=== PATIENT | female | born 1985 | race Hispanic/Latino ===

== ENCOUNTER 2017-12-11 10:27 | Emergency (ER) | payer OTHER ==
[2017-12-11] MEDS ORDERED: Iohexol 240 (50 ml) PO ONE (11:05)
[2017-12-11] MEDS ORDERED: Sodium Chloride 0.9% 1,000 ML IV STA (11:05)
[2017-12-11 11:31] LABS: BASO % 0.3 % (0.0-2.0); EOS % 0.1 % (0.0-4.0); HEMOGLOBIN 13.7 g/dL (12.0-16.0); LYMPH # 1.2 K/uL (1.0-4.3); LYMPH % 8.4 % (20.0-40.0); MEAN CORPUSCULAR HEMOGLOBIN 29.7 pg (27.0-31.0); MEAN CORPUSCULAR HGB CONC 33.7 g/dL (33.0-37.0); MEAN PLATELET VOLUME 8.5 fl (7.2-11.7); MONO # 0.8 K/uL (0.0-0.8); MONO % 5.6 % (0.0-10.0); NEUT # 12.2 K/uL (1.8-7.0); NEUT % 85.6 % (50.0-75.0); PLATELET COUNT 228 K/uL (130-400); RBC 4.63 Mil/uL (3.80-5.20); RED CELL DISTRIBUTION WIDTH 13.3 % (11.5-14.5); WHITE BLOOD COUNT 14.2 K/uL (4.8-10.8)
[2017-12-11 11:41] LABS: ALB/GLOB RATIO 1.4 (1.0-2.1); ALBUMIN 4.4 g/dL (3.5-5.0); ALT/SGPT 29 U/L (9-52); AST/SGOT 20 U/L (14-36); BLOOD UREA NITROGEN 12 mg/dl (7-17); CALCIUM 9.5 mg/dL (8.4-10.2); GFR AFRICAN-AMERICAN > 60; GFR NON-AFRICAN AMERICAN > 60; LIPASE 50 U/L (23-300)
--- NOTE | 2017-12-11 11:45 | ED PDOC ---
HPI: Abdomen Time Seen by Provider: 12/11/17 10:55 Chief Complaint (Nursing): Abdominal Pain Chief Complaint (Provider): Abdominal Pain History Per: Patient History/Exam Limitations: no limitations Current Symptoms Are (Timing): Still Present Additional Complaint(s): 32 year old female presents to the emergency department with a complaint of a periumbilical abdominal pain since last evening associated with one episode of vomiting, nausea, and diarrhea. Reports pain migrated to the right sided of the abdomen. Denies urinary symptoms, back pain, fever, or prior history of similar symptoms. Past Medical History Reviewed: Historical Data, Nursing Documentation, Vital Signs Vital Signs: Last Vital Signs Temp 97.9 F 12/11/17 10:40 Pulse 94 H 12/11/17 10:40 Resp 18 12/11/17 10:40 BP 123/74 12/11/17 10:40 Pulse Ox 100 12/11/17 15:37 - Medical History PMH: No Chronic Diseases - Surgical History Surgical History: No Surg Hx - Family History Family History: States: Unknown Family Hx - Social History Current smoker - smoking cessation education provided: No Alcohol: Social Drugs: Denies - Home Medications Home Medications: Ambulatory Orders Medication Instructions Recorded Ciprofloxacin [Cipro] 500 mg PO BID #10 tab 12/11/17 Ibuprofen [Motrin Tab] 600 mg PO Q6 PRN #15 tab 12/11/17 - Allergies Allergies/Adverse Reactions: Allergies Allergy/AdvReac Type Severity Reaction Status Date / Time Penicillins Allergy RASH Verified 12/11/17 10:52 Review of Systems ROS Statement: Except As Marked, All Systems Reviewed And Found Negative (As per HPI, otherwise negative) Constitutional: Negative for: Fever Gastrointestinal: Positive for: Nausea, Vomiting, Abdominal Pain, Diarrhea Genitourinary Female: Negative for: Dysuria, Frequency, Incontinence, Hematuria Musculoskeletal: Negative for: Back Pain Physical Exam - Reviewed Nursing Documentation Reviewed: Yes Vital Signs Reviewed: Yes - Physical Exam Appears: Positive for: No Acute Distress Head Exam: Positive for: NORMAL INSPECTION Skin: Positive for: Normal Color, Warm, Dry Cardiovascular/Chest: Positive for: Regular Rate, Rhythm. Negative for: Murmur Respiratory: Positive for: Normal Breath Sounds. Negative for: Accessory Muscle Use, Respiratory Distress Gastrointestinal/Abdominal: Positive for: Soft, Tenderness (Periumbilical and RLQ tenderness). Negative for: Normal Exam Neurologic/Psych: Positive for: Alert, Oriented (x3) - Laboratory Results Result Diagrams: 12/11/17 11:15 12/11/17 11:15 - ECG O2 Sat by Pulse Oximetry: 100 (RA) Pulse Ox Interpretation: Normal Medical Decision Making Medical Decision Making: Time: 1115 Initial Impression: Acute abdominal pain including work up for possible appendicitis Initial Plan: --CMP --Lipase --Urine DIP --Urine Preg --CBC w/ diff --Iohexol 50 ml PO --Toradol 15 mg IV --Sodium Chloride 1L IV --Zofran 4 mg PO --Urinalysis --Abd pelvis PO & IV Contrast CT --Reevaluation Time: 1338 --Abd/Pelvis CT FINDINGS: LOWER THORAX: Unremarkable. LIVER: Unremarkable. No gross lesion or ductal dilatation. GALLBLADDER AND BILE DUCTS: Unremarkable. PANCREAS: Unremarkable. No gross lesion or ductal dilatation. SPLEEN: Unremarkable. ADRENALS: Unremarkable. No mass. KIDNEYS AND URETERS: Unremarkable. No hydronephrosis. No solid mass. VASCULATURE: Unremarkable. No aortic aneurysm. BOWEL: Unremarkable. No obstruction. No gross mural thickening. APPENDIX: Not visualized, but no secondary signs to suggest acute appendicitis. PERITONEUM: Unremarkable. No free fluid. No free air. LYMPH NODES: Unremarkable. No enlarged lymph nodes. BLADDER: Unremarkable. REPRODUCTIVE: Involuting right corpus luteal follicle. BONES: No acute fracture. OTHER FINDINGS: None. IMPRESSION: Nonvisualization of the appendix, but no secondary signs to suggest acute appendicitis. Involuting right corpus luteal follicle. Time: 1416 --Pelvis/Transvag US Time: 1500 --Patient signed out to Dr. Dimitry GUSTAFSON. --Pending US and reevaluation. Scribe Attestation: Documented by Little Yarbrough, acting as a scribe for Tony Arora DO. Provider Scribe Attestation: All medical record entries made by the Scribe were at my direction and personally dictated by me. I have reviewed the chart and agree that the record accurately reflects my personal performance of the history, physical exam, medical decision making, and the department course for this patient. I have also personally directed, reviewed, and agree with the discharge instructions and disposition. Disposition - Clinical Impression Clinical Impression: Ovarian cyst, UTI (urinary tract infection) - Patient ED Disposition Is Patient to be Admitted: No Counseled Patient/Family Regarding: Studies Performed, Diagnosis, Need For Followup, Rx Given - Disposition Referrals: Yazan Castano MD [Staff Provider] - Disposition: Transfer of Care (To Dr. Dimitry GUSTAFSON) Disposition Time: 15:00 Condition: STABLE Additional Instructions: Return to ER for any worse or new symptoms. Take medication as directed. Prescriptions: Ciprofloxacin [Cipro] 500 mg PO BID #10 tab Ibuprofen [Motrin Tab] 600 mg PO Q6 PRN #15 tab PRN Reason: Pain, Moderate (4-7) Instructions: Urinary Tract Infections in Adults, Ovarian Cysts, Acute Abdomen (Belly Pain), Adult (DC) Forms: [employer] ([place]ian) Patient Signed Over To: Dom Moraes (@ 1448)
[2017-12-11] MEDS ORDERED: Iohexol 300 100 ML IJ ONE (11:53)
[2017-12-11 12:08] LABS: SQUAMOUS EPITHIAL 7 /hpf (0-5); URINE BACTERIA RARE (<OCC); URINE BILIRUBIN NEGATIVE (NEGATIVE); URINE BLOOD NEGATIVE (NEGATIVE); URINE CLARITY SLIGHTY-CLOUDY (Clear); URINE COLOR YELLOW (YELLOW); URINE GLUCOSE (UA) NEG (Normal); URINE LEUKOCYTE ESTERASE SMALL Leu/uL (Negative); URINE PROTEIN NEGATIVE (NEGATIVE); URINE UROBILINOGEN 0.2-1.0 mg/dL (0.2-1.0)
[2017-12-11 12:49] LABS: LYMPHOCYTE 6 % (20-50); MONOCYTE 7 % (0-10); NEUTROPHIL 86 % (42-75); PLATELET ESTIMATE NORMAL (NORMAL); REACTIVE LYMPHOCYTES 1 % (0-0); TOTAL CELLS COUNTED 100
--- NOTE | 2017-12-11 13:59 | CT ---
PROCEDURE: CT Abdomen and Pelvis with contrast HISTORY: RLQ and periumbilical pain, vomiting COMPARISON: None. TECHNIQUE: Contrast dose: 98 cc Omnipaque 300 Radiation dose: Total exam DLP = 942.0 mGy-cm. This CT exam was performed using one or more of the following dose reduction techniques: Automated exposure control, adjustment of the mA and/or kV according to patient size, and/or use of iterative reconstruction technique. FINDINGS: LOWER THORAX: Unremarkable. LIVER: Unremarkable. No gross lesion or ductal dilatation. GALLBLADDER AND BILE DUCTS: Unremarkable. PANCREAS: Unremarkable. No gross lesion or ductal dilatation. SPLEEN: Unremarkable. ADRENALS: Unremarkable. No mass. KIDNEYS AND URETERS: Unremarkable. No hydronephrosis. No solid mass. VASCULATURE: Unremarkable. No aortic aneurysm. BOWEL: Unremarkable. No obstruction. No gross mural thickening. APPENDIX: Not visualized, but no secondary signs to suggest acute appendicitis. PERITONEUM: Unremarkable. No free fluid. No free air. LYMPH NODES: Unremarkable. No enlarged lymph nodes. BLADDER: Unremarkable. REPRODUCTIVE: Involuting right corpus luteal follicle. BONES: No acute fracture. OTHER FINDINGS: None. IMPRESSION: Nonvisualization of the appendix, but no secondary signs to suggest acute appendicitis. Involuting right corpus luteal follicle.
--- NOTE | 2017-12-11 15:45 | ED PDOC ---
- Laboratory Results Result Diagrams: 12/11/17 11:15 12/11/17 11:15 - ECG O2 Sat by Pulse Oximetry: 100 (RA) Pulse Ox Interpretation: Normal Medical Decision Making Medical Decision Making: Patient endorsed to provider at [address] Arora pending US and reevaluation. Documented by Alicia Gunter acting as a scribe for Dom Moraes MD. All medical record entries made by the Scribe were at my direction and personally dictated by me. I have reviewed the chart and agree that the record accurately reflects my personal performance of the history, physical exam, medical decision making, and the department course for this patient. I have also personally directed, reviewed, and agree with the discharge instructions and disposition. Disposition - Clinical Impression Clinical Impression: Ovarian cyst, UTI (urinary tract infection) - POA Present On Arrival: None - Disposition Referrals: Yazan Castano MD [Staff Provider] - Disposition: Routine/Home Disposition Time: 18:29 Condition: FAIR Additional Instructions: Return to ER for any worse or new symptoms. Take medication as directed. Prescriptions: Ciprofloxacin [Cipro] 500 mg PO BID #10 tab Ibuprofen [Motrin Tab] 600 mg PO Q6 PRN #15 tab PRN Reason: Pain, Moderate (4-7) Instructions: Urinary Tract Infections in Adults, Ovarian Cysts, Acute Abdomen (Belly Pain), Adult (DC) Forms: [employer] ([place])
--- NOTE | 2017-12-11 17:52 | US ---
HISTORY: R pelvic pain, ovarian cyst on CT r.o torsion COMPARISON: None available. TECHNIQUE: Grayscale, color Doppler and spectral evaluation the pelvis performed transvaginally FINDINGS: UTERUS: Measures 7.3 x 5.6 x 4.2 cm. Retroverted. Bicornuate configuration. Normal in size and appearance. No fibroid or other mass lesion seen. ENDOMETRIUM: Unremarkable. CERVIX: No cervical abnormality identified. RIGHT OVARY: Measures 4.1 x 2.3 x 2.0 cm. Follicles. No solid mass. Normal flow. LEFT OVARY: Measures 2.3 x 4.0 x 2.4 cm. Follicles. No solid mass. Normal flow. FREE FLUID: Trace free fluid noted. OTHER FINDINGS: None. IMPRESSION: Unremarkable pelvic ultrasound.
[2017-12-11 18:36] VITALS: BP 132/74; PULSE 87; RESP 19; TEMP 98.3; O2SAT 98
--- NOTE | 2017-12-13 09:56 | CON ---
DATE: 12/11/2017 HISTORY OF PRESENT ILLNESS: The patient was admitted with abdominal pain since yesterday, little bit of nausea. No vomiting. No diarrhea, constipation, bright red blood per rectum, melena, fevers, or chills. Last menstrual period was 2 weeks ago, normal in time. She does not think she is . The pain began epigastric or periumbilical and settled mildly in the right lower quadrant. There has been no vaginal bleeding. No dysuria, frequency, urgency, or hematuria. White count on admission was 14. SMA-18 was normal. CAT scan that I personally read, referred as nonvisualization of the appendix, I believe there was visualization of opacified appendix; however, there was certainly no inflammation around it. There was corpus luteum cyst. Transvaginal ultrasound was otherwise unremarkable. Some trace fluid. PHYSICAL EXAMINATION: ABDOMEN: Remarkable for mild diffuse tenderness. No guarding, rebound, or peritoneal signs. IMPRESSION: My impression is this is not appendicitis, this is probably related to a ruptured ovarian cyst. She is advised to come back if there is pain, persistent fever, etc. Yazan Castano MD
== END 2017-12-11 18:50 | disposition home or self-care (01) ==
LOC: H.ER 10:27
DX: N39.0 Urinary tract infection, site not specified (principal); N83.209 Unspecified ovarian cyst, unspecified side; Z88.0 Allergy status to penicillin
CPT/HCPCS: 74177; 76830; 76856; 80053; 81003; 81025; 83690; 85025; 99285; J1885; J7040; Q9966; Q9967